=== PATIENT | female | born 1950 | race Caucasian/White ===

== ENCOUNTER 2020-10-27 10:19 | Emergency (ER) | payer MEDICARE, SELFPAY ==
[2020-10-27 10:25] VITALS: BP 124/84; PULSE 97; RESP 18; TEMP 37.6; O2SAT 100
[2020-10-27 10:39] VITALS: BP 124/84; PULSE 97; RESP 18; TEMP 37.6; O2SAT 100
--- NOTE | 2020-10-27 10:42 | ED.FEMALEGU ---
HPI - Female Genitourinary General Chief complaint: Urogenital-Female Stated complaint: bladder infection Time Seen by Provider: 10/27/20 10:42 Source: patient Mode of arrival: ambulatory Limitations: no limitations History of Present Illness HPI Narrative: Clarisa Maynard is a 70 yo female with a PMH of benign brain neoplasm of pituitary, complaints of urinary symptoms that began last night. States she has had frequency and bladder spasm, this morning had a temperature of 99.6. Patient is on prednisone for pituitary replacement from removal of neoplasm as well as medication for diabetes insipidus. He also also takes medication for hypothyroid. She is concerned that her urinary tract symptoms should be treated because of these other endocrine issues Related Data Home Medications Medication Instructions Recorded Confirmed amlodipine 2.5 mg PO TID 10/27/20 10/27/20 atorvastatin 40 mg PO DAILY 10/27/20 10/27/20 desmopressin 0.1 mg PO DAILY 10/27/20 10/27/20 fluorometholone 1 drp 10/27/20 hydrocortisone 10 mg PO DAILY 10/27/20 10/27/20 latanoprost drp 10/27/20 levothyroxine 112 mcg PO DAILY 10/27/20 10/27/20 tramadol 50 mg PO DAILY 10/27/20 10/27/20 Allergies Allergy/AdvReac Type Severity Reaction Status Date / Time fentanyl AdvReac Nausea and Verified 10/27/20 10:39 Vomiting Review of Systems Review of Systems: Narrative: CONSTITUTIONAL: Denies fever, chills, sweats. EYES: Denies visual changes, redness, discharge. ENT: Denies rhinorrhea, congestion, sore throat, otalgia. CARDIOVASCULAR: Denies chest pain, palpitations, edema. RESPIRATORY: Denies dyspnea, wheezing, cough GASTROINTESTINAL: Denies abdominal pain, nausea, vomiting, diarrhea. GENITOURINARY: Has dysuria, hematuria, abnormal discharge SKIN: Denies rash or itching. NEUROLOGIC: Denies numbness, or focal weakness. PSYCHIATRIC: Denies anxiety or depression. [facility] Past Medical History Medical History (Updated 10/27/20 @ 11:51 by Lakesha Garcia CNP) Corneal transplant infection, bilateral Diabetes Hypothyroid Pituitary tumor Family History Family History Other CAD (coronary artery disease) Hypertension Social History Social History (Updated 10/27/20 @ 10:53 by Lakesha Garcia CNP) Smoking status: Never smoker Alcohol intake: never Comments At time of signature, I agree with nursing past medical, surgical, social and family history. There is no relevant family history pertinent to the presenting complaint. Exam Narrative: Exam Narrative: GENERAL: This is a well-nourished, well-developed patient, in mild distress. HEAD: normocephalic, atraumatic. EYES: sclera clear/white. Vision is grossly intact. EARS: External ears normal, Hearing grossly intact. NOSE: External nose normal without nasal discharge, nares without redness, no rhinorrhea. THROAT: Mucous membranes moist, NECK: Neck supple, non-tender CARDIOVASCULAR: Regular rate and rhythm without murmurs, gallops, or rubs. RESPIRATORY: Clear to auscultation. Breath sounds equal bilaterally. No wheezes, rales, or rhonchi. GASTROINTESTINAL: Abdomen soft, SKIN: warm, intact with no suspicious lesions or rash, good texture and turgor. NEURO: awake, alert, and oriented to person, place and time. There were no obvious focal neurologic abnormalities. Steady gait EXTREMITIES: Normal range of motion. BACK: Nontender without deformity Course Course Emergency Course: Patient came to express care with urinary symptoms that started the previous evening UA shows 2+ leukocytes positive nitrite and blood in the urine. Urine sent for culture Started on Keflex and Pyridium We will follow-up with primary care physician Given reasons to return or go to ER such as running high fever nausea vomiting Vital Signs Vital signs: Vital Signs Temperature 99.6 F 10/27/20 10:25 Pulse Rate 97 10/27/20 10:25 Respiratory Rate 18
== END 2020-10-27 11:00 | disposition home or self-care (01) ==
PROVIDERS: Emergency Provider Nurse Practitioner; PCP Internal Medicine Geriatric Medicine
DX: N30.01 Acute cystitis with hematuria (principal); E11.9 Type 2 diabetes mellitus without complications; E03.9 Hypothyroidism, unspecified
CPT/HCPCS: 81003; 87077; 87086; 87088; 87186; 99213; G0463

== ENCOUNTER → 2021-11-22 01:22 | Outpatient (CLI) | payer MEDICARE, SELFPAY ==
[2021-11-22 20:43] LABS: SARS-CoV-2 RNA PCR Negative
== END ==
PROVIDERS: PCP Internal Medicine Geriatric Medicine; Visit Provider Internal Medicine Geriatric Medicine
DX: R05.9 Cough, unspecified (principal); Z20.822 Contact with and (suspected) exposure to COVID-19
CPT/HCPCS: C9803; U0003; U0005